=== PATIENT | female | born 1980 | race African-American/Black ===

== ENCOUNTER → 2018-09-26 | Outpatient (CLI) | payer MEDICAID ==
[2018-09-26 12:49] LABS: BASO % 0.7 % (0.0-2.0); EOS # 0.4 (0.0-0.7); GRAN # 2.6 (1.4-6.5); GRAN % 48.7 % (42.2-75.2); LYMPH # 1.9 (1.2-3.4); LYMPH % 34.3 % (20.0-51.0); MEAN CELL VOLUME 87 fl (80.0-100.0); MEAN CORPUSCULAR HEMOGLOBIN 29 pg (27.0-31.0); MEAN CORPUSCULAR HGB CONC 33 g/dl (33.0-37.0); MEAN PLATELET VOLUME 9.9 fl (7.4-10.4); MONO # 0.5 (0.1-0.6); MONO % 9.1 % (1.7-9.3); PLATELET COUNT 314 K/mm3 (130-400); RED BLOOD COUNT 4.48 M/mm3 (4.10-5.30)
[2018-09-26 13:01] LABS: CALCIUM 9.2 mg/dL (8.4-10.2); CHOLESTEROL RISK RATIO 5.1; CREATININE, serum 0.71 (0.52-1.25); POTASSIUM 3.8 mmol/L (3.4-5.0)
[2018-09-26 13:16] LABS: HIV 1/2 Antibodies Non-Reactive; HIV-1p24 Antigen Non-Reactive
[2018-09-26 13:32] LABS: THYROID STIMULATING HORMONE 2.12 uIU/mL (0.465-4.680)
[2018-09-27 01:48] LABS: HEPATITIS B SURFACE ANTIGEN Negative (Negative); HEPATITIS C VIRUS ANTIBODY Negative (Negative)
[2018-09-29 08:22] LABS: HERPES SIMPLEX VIRUS 1 IGG XXX; HERPES SIMPLEX VIRUS 2 IGG XXX; RPR (VDRL) XXX
== END ==
LOC: COL.LAB 11:35
PROVIDERS: Family Medicine
DX: Z11.3 Encounter for screening for infections with a predominantly sexual mode of transmission (principal); I10 Essential (primary) hypertension; N93.9 Abnormal uterine and vaginal bleeding, unspecified; E66.01 Morbid (severe) obesity due to excess calories

== ENCOUNTER 2019-02-04 23:12 | Emergency (ER) | payer MEDICAID ==
[~2019-02-04] VITALS: Ht 170.2 cm; Wt 122.7 kg
[2019-02-05] MEDS ORDERED: NORCO 325 MG-51 TAB PO (00:23)
[2019-02-05 00:40] VITALS: BP 132/80; PULSE 68; TEMP 97.6
== END 2019-02-05 00:45 | disposition home or self-care (01) ==
LOC: COL.ER 23:12
DX: M79.641 Pain in right hand (principal); M79.89 Other specified soft tissue disorders

== ENCOUNTER 2019-03-15 17:53 | Emergency (ER) | payer MEDICAID ==
[~2019-03-15] VITALS: Ht 170.2 cm; Wt 120.5 kg
[~2019-03-15 17:53] MED LIST: NORCO 325 MG-51 TAB PO
[2019-03-15 18:14] VITALS: BP 129/58; TEMP 97.2
[2019-03-15] MEDS ORDERED: 00186-0370-20 IH (18:50)
[2019-03-15] MEDS ORDERED: PROVENTIL0.09 MG/A1 IH (18:50)
[2019-03-15] MEDS ORDERED: FLEXERIL 1010 MG/TAB PO (18:50)
[2019-03-15 20:00] VITALS: PULSE 92
[2019-03-15] MEDS ORDERED: PREDNISONE20 MG PO (20:17)
== END 2019-03-15 20:33 | disposition home or self-care (01) ==
LOC: COL.ER 17:53
DX: J45.901 Unspecified asthma with (acute) exacerbation (principal); F17.210 Nicotine dependence, cigarettes, uncomplicated
CPT/HCPCS: J7512

== ENCOUNTER 2019-07-21 18:21 | Emergency (ER) | payer MEDICAID ==
[~2019-07-21] VITALS: Ht 170.2 cm; Wt 125.0 kg
[~2019-07-21 18:21] MED LIST changes: +00186-0370-20 IH; +FLEXERIL 1010 MG/TAB PO; +PREDNISONE20 MG PO; +PROVENTIL0.09 MG/A1 IH
[2019-07-21 18:29] VITALS: BP 153/97; TEMP 98.4
[2019-07-21] MEDS ORDERED: ZANAFLEX 4MG TAB4 MG PO (20:57)
[2019-07-21 21:07] VITALS: PULSE 79
== END 2019-07-21 21:09 | disposition home or self-care (01) ==
LOC: COL.ER 18:21
DX: M62.838 Other muscle spasm (principal); I10 Essential (primary) hypertension
CPT/HCPCS: J1885

== ENCOUNTER 2019-10-27 05:20 | Day surgery (SDC) | payer MEDICAID ==
[2019-10-27] VITALS (10 sets, daily range): BP systolic 118–140; BP diastolic 68–90; PULSE 57–82; TEMP 97.9–98.3
[~2019-10-27 05:20] MED LIST changes: +CARAFATE 1GM1 G PO; +PROTONIX 40MG T40 MG PO; +ZANAFLEX 4MG TAB4 MG PO; +ZOFRAN ODT4 MG PO
--- NOTE | 2019-10-27 05:35 | NUR ---
Ambulatory to unit for scheduled surgery. oriented to plan of care. OR consent signed, questions invited and answered.
--- NOTE | 2019-10-27 06:35 | NUR ---
husbands phone number: [phone] "Shirley"
[2019-10-27] MEDS ORDERED: IBU600 MG PO (08:40)
[2019-10-27] MEDS ORDERED: PERCOCET 325 MG1 TA2 PO (08:40)
--- NOTE | 2019-10-27 09:30 | NUR ---
0930PATIENT MOVED TO ROOM FROM PACU. VSS. PT IS ON 2L O2 NC STILL. SPO2 98%. FEW EXP WHEEZES AUSCULATED. PT RATES PAIN 5/10 FOR ABDOMINAL CRAMPING. SITES X 2 COVERED WITH BANDAIDS CDI, SITE X 1 COVERED WITH 2X2 AND TEGADRM CDI. PT ALERT AND ORIENTED.
--- NOTE | 2019-10-27 09:45 | NUR ---
0945PT GIVEN WARM BLANKET TO ABDOMEN AND ICE CHIPS. VSS. DENIES NEEDS.
--- NOTE | 2019-10-27 10:00 | NUR ---
1000PT RATING PAIN 5/10 STILL WITH CRAMPING. STATES SHE IS HUNGRY AND THIRSTY. WATER GIVEN. WILL START TO ADV DIET TOLERATED.
--- NOTE | 2019-10-27 10:45 | NUR ---
1045 PT STATES SHE IS STILL NAUSEATED, ZOFRAN ODT GIVEN. PT HAS JUST BEEN WORKING ON ICE CHIPS AND HAD HALF A BRYCE CRACKER WITH HER PERCOCET AT 1015. PT REQUSETED BED PAIN TO VOID IN, VOIDED 300ML. TOLERATED WELL. O2 REMOVED. SPO2 HAS BEEN 97-99% ON 2L NC. WILL CONT TO MONITOR.
--- NOTE | 2019-10-27 11:15 | NUR ---
1115PT STATES SHE IS STILL NAUSEATED. STATES PAIN IS 'OKAY' RATING IT AT A 5/10 SAYING ITS MOSTLY CRAMPING AND THAT HER BIGGEST CONCERN RIGHT NOW IS HER UPSET STOMACH. ENCOURAGED TO REST.
--- NOTE | 2019-10-27 12:15 | NUR ---
1215PT REQUEST HOT BROTH TO HELP SOOTHE STOMACH. 1230 ATTEMPTED TO DRINK BROTH. VOMITED BACK UP. DISCUSSED STICKING WITH ICE CHIPS AND WATER SIPS FOR NOW. 1300 PT STATED SHE THINKS SHE CAN KEEP A MOTRIN DOWN, GIVEN PO AT THIS TIME. STATES SHE IS STILL VERY NAUSEATED AND REQUESTED SOMETHING ELSE FOR NAUSEA. PAIN STILL 5/10 PT STATES IT IS 'TOLERABLE.' DR KIRKLAND NOTIFIED, ORDER FOR PHENERGAN 25MG IV.
--- NOTE | 2019-10-27 19:25 | NUR ---
Patient tolerates dinner without nausea. Pain well controlled. Patient desires to be discharged. Dr. Odell called and discharge orders received.
--- NOTE | 2019-10-27 19:50 | NUR ---
Discharge instructions reviewed. Patient discharged home in stable condition.
== END 2019-10-27 19:50 | disposition home or self-care (01) ==
LOC: SDCO 05:20
DX: N83.12 Corpus luteum cyst of left ovary (principal); N83.02 Follicular cyst of left ovary; E66.9 Obesity, unspecified; I10 Essential (primary) hypertension; F17.210 Nicotine dependence, cigarettes, uncomplicated; K21.9 Gastro-esophageal reflux disease without esophagitis; J45.909 Unspecified asthma, uncomplicated; B00.9 Herpesviral infection, unspecified; D57.3 Sickle-cell trait; Z79.52 Long term (current) use of systemic steroids; Z90.49 Acquired absence of other specified parts of digestive tract; Z90.710 Acquired absence of both cervix and uterus; Z68.42 Body mass index [BMI] 45.0-49.9, adult
CPT/HCPCS: J1170; J1885; J2405; J2550; J2710; J3010; J7120; Q4114

== ENCOUNTER 2020-03-11 09:09 | Emergency (ER) | payer MEDICAID ==
[~2020-03-11] VITALS: Ht 167.6 cm; Wt 143.2 kg
[~2020-03-11 09:09] MED LIST changes: +IBU600 MG PO; +PERCOCET 325 MG1 TA2 PO
[2020-03-11 09:16] VITALS: TEMP 98.1
[2020-03-11] MEDS ORDERED: TYLENOL 325MG325 MG PO (09:37)
[2020-03-11] MEDS ORDERED: DITROPAN 5MG TAB5 MG PO (09:38)
[2020-03-11] MEDS ORDERED: TOPAMAX50 MG (09:38)
[2020-03-11 10:55] LABS: BASO % 0.6 % (0.0-2.0); EOS # 0.1 (0.0-0.7); GRAN # 2.7 (1.4-6.5); GRAN % 58.1 % (42.2-75.2); HEMATOCRIT 40.2 % (37.0-47.0); HEMOGLOBIN 13.7 g/dl (12.5-16.0); LYMPH # 1.3 (1.2-3.4); LYMPH % 28.1 % (20.0-51.0); MEAN CELL VOLUME 87 fl (80.0-100.0); MEAN CORPUSCULAR HEMOGLOBIN 30 pg (27.0-31.0); MEAN CORPUSCULAR HGB CONC 34 g/dl (33.0-37.0); MEAN PLATELET VOLUME 10.3 fl (7.4-10.4); MONO # 0.5 (0.1-0.6); PLATELET COUNT 281 K/mm3 (130-400); RED BLOOD COUNT 4.61 M/mm3 (4.10-5.30); REDCELL DISTRIBUTION WIDTH-CV 13.2 % (11.5-14.5)
[2020-03-11 11:07] LABS: ALBUMIN 3.7 gm/dL (3.5-5.0); BILIRUBIN,TOTAL 0.4 mg/dL (0.0-1.0); CALCIUM 8.6 mg/dL (8.4-10.2); CREATININE, serum 0.91 (0.52-1.25); POTASSIUM 4.1 mmol/L (3.4-5.0); TOTAL PROTEIN 6.9 gm/dL (6.4-8.2)
[2020-03-11 11:34] LABS: COLLECTION METHOD CLEAN CATCH
[2020-03-11 11:43] LABS: MUCOUS Present /lpf; PH 5 (5-8); URINE APPEARANCE Clear; URINE BACTERIA Rare /hpf; URINE BILIRUBIN Negative (NEGATIVE); URINE BLOOD Negative (NEGATIVE); URINE COLOR Yellow; URINE GLUCOSE Negative (NEGATIVE); URINE KETONE Negative (NEGATIVE); URINE LEUKOCYTE ESTERASE Negative (NEGATIVE); URINE NITRATE Negative (NEGATIVE); URINE PROTEIN(semi-quant) Negative (NEGATIVE); URINE RBC 0-2 /hpf; URINE UROBILINOGEN Negative (NEGATIVE)
[2020-03-11] MEDS ORDERED: CLEOCIN HC150 MG/CAP PO (13:04)
[2020-03-11] MEDS ORDERED: NORCO 325 MG-51 TAB PO (13:36)
[2020-03-11 13:56] VITALS: BP 151/93; PULSE 55
== END 2020-03-11 14:05 | disposition home or self-care (01) ==
LOC: COL.ER 09:09
PROVIDERS: Emergency Medicine
DX: L02.214 Cutaneous abscess of groin (principal); E66.01 Morbid (severe) obesity due to excess calories; Z87.891 Personal history of nicotine dependence; Z79.51 Long term (current) use of inhaled steroids
CPT/HCPCS: J2270; J2405; J3010; J7120

== ENCOUNTER → 2020-04-14 | Outpatient (CLI) | payer MEDICAID ==
[~2020-04-14] MED LIST changes: +CLEOCIN HC150 MG/CAP PO; +DITROPAN 5MG TAB5 MG PO; +MEDROL 4MG DOSPA4 MG PO; +NORFLEX 10100 MG/TAB PO; +TOPAMAX50 MG; +TYLENOL 325MG325 MG PO
== END ==
LOC: COL.RAD
DX: G43.009 Migraine without aura, not intractable, without status migrainosus (principal); H74.8X1 Other specified disorders of right middle ear and mastoid

== ENCOUNTER 2020-07-07 13:21 | Emergency (ER) | payer MEDICAID ==
[~2020-07-07] VITALS: Ht 167.6 cm; Wt 122.7 kg
[~2020-07-07 13:21] MED LIST changes: -MEDROL 4MG DOSPA4 MG PO; -NORFLEX 10100 MG/TAB PO
[2020-07-07 13:50] VITALS: TEMP 97.3
[2020-07-07] MEDS ORDERED: NORFLEX 10100 MG/TAB PO (16:05)
[2020-07-07] MEDS ORDERED: MEDROL 4MG DOSPA4 MG PO (16:05)
[2020-07-07 16:11] VITALS: BP 131/80; PULSE 81
== END 2020-07-07 16:11 | disposition home or self-care (01) ==
LOC: COL.ER 13:21
DX: G89.29 Other chronic pain (principal); M54.5 Low back pain; I10 Essential (primary) hypertension; E66.9 Obesity, unspecified; G43.909 Migraine, unspecified, not intractable, without status migrainosus; Z90.710 Acquired absence of both cervix and uterus; Z79.891 Long term (current) use of opiate analgesic; Z68.41 Body mass index [BMI] 40.0-44.9, adult
CPT/HCPCS: J1885; J2360

== ENCOUNTER → 2021-04-06 | Outpatient (RCR) | payer MEDICAID ==
[~2021-04-06] MED LIST changes: +MEDROL 4MG DOSPA4 MG PO; +NORFLEX 10100 MG/TAB PO
== END ==
LOC: WSOT
DX: M25.531 Pain in right wrist (principal); M79.641 Pain in right hand

== ENCOUNTER 2021-10-14 14:48 | Emergency (ER) | payer MEDICAID ==
[~2021-10-14] VITALS: Ht 167.6 cm; Wt 113.6 kg
[2021-10-14 14:58] VITALS: TEMP 98.5
[2021-10-14 16:30] LABS: BASO # 0.1 K/mm3 (0.0-0.2); BASO % 1.1 % (0.0-2.0); EOS # 0.3 K/mm3 (0.0-0.7); EOS % 5.7 % (0.0-4.0); GRAN # 1.8 K/mm3 (1.4-6.5); GRAN % 38.8 % (42.2-75.2); HEMATOCRIT 41.2 % (37.0-47.0); HEMOGLOBIN 14.2 g/dl (12.5-16.0); LYMPH # 2.2 K/mm3 (1.2-3.4); LYMPH % 46.4 % (20.0-51.0); MEAN CELL VOLUME 88 fl (80.0-100.0); MEAN CORPUSCULAR HEMOGLOBIN 30 pg (27-31); MEAN CORPUSCULAR HGB CONC 35 g/dl (33.0-37.0); MEAN PLATELET VOLUME 10.2 fl (7.4-10.4); MONO # 0.4 K/mm3 (0.1-0.6); MONO % 7.8 % (1.7-9.3); PLATELET COUNT 299 K/mm3 (130-400); RED BLOOD COUNT 4.68 M/mm3 (4.10-5.30); REDCELL DISTRIBUTION WIDTH-CV 12.1 % (11.5-14.5)
[2021-10-14 16:37] VITALS: BP 155/97
[2021-10-14 16:47] LABS: CREATININE, serum 0.85 mg/dL (0.57-1.11); POTASSIUM 3.6 mmol/L (3.5-4.5)
[2021-10-14 16:48] LABS: ALBUMIN 3.6 gm/dL (3.5-5.0); BILIRUBIN,TOTAL 0.4 mg/dL (0.2-1.2); CALCIUM 9.2 mg/dL (8.4-10.2); TOTAL PROTEIN 6.8 gm/dL (6.2-8.1)
[2021-10-14] MEDS ORDERED: PREDNISONE20 MG PO (16:57)
[2021-10-14 17:13] VITALS: PULSE 60
== END 2021-10-14 17:13 | disposition home or self-care (01) ==
LOC: COL.ER 14:48
PROVIDERS: Physician Assistant
DX: J45.901 Unspecified asthma with (acute) exacerbation (principal); F17.290 Nicotine dependence, other tobacco product, uncomplicated
CPT/HCPCS: J7512

== ENCOUNTER 2021-10-16 20:24 | Emergency (ER) | payer MEDICAID ==
[~2021-10-16] VITALS: Ht 167.6 cm; Wt 113.6 kg
[2021-10-16 20:29] VITALS: BP 150/90; TEMP 98.4
[2021-10-16] MEDS ORDERED: NEB MC (21:08)
[2021-10-16] MEDS ORDERED: ALBUTEROL0.83 MG/ML IH (21:08)
[2021-10-16 21:36] VITALS: PULSE 58
== END 2021-10-16 21:37 | disposition home or self-care (01) ==
LOC: COL.ER 20:24
DX: J45.901 Unspecified asthma with (acute) exacerbation (principal)

== ENCOUNTER 2021-10-28 16:56 | Emergency (ER) | payer MEDICAID ==
[~2021-10-28] VITALS: Ht 167.6 cm; Wt 117.3 kg
[~2021-10-28 16:56] MED LIST changes: +ALBUTEROL0.83 MG/ML IH; +NEB MC
[2021-10-28 17:20] VITALS: BP 146/88; TEMP 98.1
[2021-10-28] MEDS ORDERED: ALAWAY 10 ML10 ML OP (17:55)
[2021-10-28 18:14] VITALS: PULSE 54
== END 2021-10-28 18:14 | disposition home or self-care (01) ==
LOC: COL.ER 16:56
DX: H10.13 Acute atopic conjunctivitis, bilateral (principal); J45.901 Unspecified asthma with (acute) exacerbation; Z87.891 Personal history of nicotine dependence; Z79.52 Long term (current) use of systemic steroids

== ENCOUNTER → 2023-10-07 | Outpatient (CLI) | payer MEDICAID ==
[~2023-10-07] MED LIST changes: +ADIPEX-P37.5 M2 PO; +ALAWAY 10 ML10 ML OP; +AMOXICILLIN 8751 TAB PO; +GLUCOPHAGE500 MG/TAB PO; +IBU800 M1 PO; +MOTRIN 200200 MG/TAB PO; +NORCO 325 MG-7.1 TAB PO; +REGLAN 10MG10 MG/TAB PO; +SINGULAIR 110 MG/TAB PO; -TOPAMAX50 MG; +TOPAMAX50 MG PO
[2023-10-07 10:43] LABS: BASO # 0.1 K/mm3 (0.0-0.2); BASO % 1.1 % (0.0-2.0); EOS # 0.1 K/mm3 (0.0-0.7); EOS % 2.2 % (0.0-4.0); GRAN # 2.6 K/mm3 (1.4-6.5); GRAN % 57.4 % (42.2-75.2); HEMOGLOBIN 15.8 g/dl (12.5-16.0); LYMPH # 1.4 K/mm3 (1.2-3.4); LYMPH % 30.2 % (20.0-51.0); MEAN CELL VOLUME 97 fl (80.0-100.0); MEAN CORPUSCULAR HEMOGLOBIN 31 pg (27-31); MEAN CORPUSCULAR HGB CONC 32 g/dl (33.0-37.0); MEAN PLATELET VOLUME 9.7 fl (7.4-10.4); MONO # 0.4 K/mm3 (0.1-0.6); MONO % 8.9 % (1.7-9.3); PLATELET COUNT 251 K/mm3 (130-400); RED BLOOD COUNT 5.04 M/mm3 (4.10-5.30); REDCELL DISTRIBUTION WIDTH-CV 12.2 % (11.5-14.5)
== END ==
LOC: COL.LAB 09:40
PROVIDERS: Orthopaedic Surgery Sports Medicine
DX: M25.561 Pain in right knee (principal); Z96.651 Presence of right artificial knee joint

== ENCOUNTER 2023-10-18 17:37 | Observation (INO) | payer MEDICAID ==
[~2023-10-18] VITALS: Ht 170.2 cm; Wt 115.0 kg
[~2023-10-18 17:37] MED LIST changes: -ADIPEX-P37.5 M2 PO; -GLUCOPHAGE500 MG/TAB PO; -IBU800 M1 PO; -REGLAN 10MG10 MG/TAB PO; -SINGULAIR 110 MG/TAB PO
[2023-10-18] MEDS ORDERED: Ketorolac 30 MG/ML VIAL IV ONE (18:00)
[2023-10-18] MEDS ORDERED: NS 1,000 ML IV ONE (18:00)
[2023-10-18] MEDS ORDERED: Ondansetron 4 MG/2 ML VIAL IV ONE (18:00)
[2023-10-18 18:09] LABS: BASO % 0.3 % (0.0-2.0); EOS % 0.1 % (0.0-4.0); GRAN # 13.1 K/mm3 (1.4-6.5); GRAN % 86.9 % (42.2-75.2); HEMOGLOBIN 14.5 g/dl (12.5-16.0); LYMPH % 6.5 % (20.0-51.0); MEAN CELL VOLUME 90 fl (80.0-100.0); MEAN CORPUSCULAR HEMOGLOBIN 31 pg (27-31); MEAN CORPUSCULAR HGB CONC 35 g/dl (33.0-37.0); MEAN PLATELET VOLUME 10.3 fl (7.4-10.4); MONO # 0.9 K/mm3 (0.1-0.6); MONO % 5.7 % (1.7-9.3); PLATELET COUNT 271 K/mm3 (130-400); RED BLOOD COUNT 4.65 M/mm3 (4.10-5.30)
[2023-10-18 18:25] LABS: ALBUMIN 3.4 g/dL (3.5-5.0); BILIRUBIN,TOTAL 0.7 mg/dL (0.2-1.2); CALCIUM 8.9 mg/dL (8.4-10.2); CREATININE, serum 0.68 mg/dL (0.57-1.11); TOTAL PROTEIN 6.9 g/dl (6.2-8.1)
[2023-10-18] MEDS ORDERED: Morphine 4 MG/ML VIAL IV ONE (18:45)
[2023-10-18] MEDS ORDERED: Iohexol 300 - 100 ML VIAL IV ONE (19:22)
[2023-10-18 19:27] LABS: COLLECTION METHOD CLEAN CATCH
[2023-10-18 19:36] LABS: PH 7.5 (5.0-8.5); URINE APPEARANCE CLEAR (CLEAR/HAZY); URINE BLOOD NEGATIVE (NEGATIVE); URINE COLOR YELLOW (YELLOW); URINE GLUCOSE NEGATIVE (NEGATIVE); URINE KETONE NEGATIVE (NEGATIVE); URINE NITRATE NEGATIVE (NEGATIVE); URINE PROTEIN(semi-quant) TRACE (NEGATIVE)
[2023-10-18] MEDS ORDERED: HYDROmorphone 0.5 MG/0.5 ML SYRINGE IV ONE (20:00)
[2023-10-18] MEDS ORDERED: Rocuronium 50 MG/5 ML Multi-Dose VIAL ONE (20:37)
[2023-10-18] MEDS ORDERED: Succinylcholine PF 200 MG/10 ML SYRINGE IV ONE (20:37)
[2023-10-18] MEDS ORDERED: fentaNYL 50 MCG/ML 2 ML VIAL ONE ×2 (20:37→22:00)
[2023-10-18] MEDS ORDERED: Lidocaine PF 2% (20 MG/ML) 5 ML VIAL ONE (20:37)
[2023-10-18] MEDS ORDERED: LR 1,000 ML IV SCH (20:45)
[2023-10-18] MEDS ORDERED: Ondansetron 4 MG/2 ML VIAL ONE (21:18)
[2023-10-18] MEDS ORDERED: dexAMETHasone 10 MG/ML VIAL ONE (21:18)
[2023-10-18] MEDS ORDERED: Ondansetron 4 MG/2 ML VIAL IV PRN ×2 (21:30→22:15)
[2023-10-18] MEDS ORDERED: fentaNYL 50 MCG/ML 1 ML SYRINGE/VIAL [PACU/SDC ONLY] IV PRN (21:30)
[2023-10-18] MEDS ORDERED: HYDROmorphone 1 MG/1 ML SYRINGE [PACU/SDC ONLY] IV PRN (21:30)
[2023-10-18] MEDS ORDERED: hydrALAZINE 20 MG/ML 1 ML VIAL IV PRN (21:30)
[2023-10-18] MEDS ORDERED: Meperidine 50 MG/ML 1 ML VIAL IV PRN (21:30)
[2023-10-18] MEDS ORDERED: Naloxone 0.4 MG/ML VIAL IV PRN (22:15)
[2023-10-18] MEDS ORDERED: HYDROmorphone 0.5 MG/0.5 ML SYRINGE IV PRN (22:15)
[2023-10-18] MEDS ORDERED: Acetaminophen 500 MG TAB PO PRN (22:15)
[2023-10-18 23:00] VITALS: BP 131/88; PULSE 60; TEMP 97.5
[2023-10-18 23:15] VITALS: BP 150/83; PULSE 71
--- NOTE | 2023-10-18 23:18 | NUR ---
THE PATIENT ARRIVED VIA BED FROM THE PACU. THE PATIENT WAS ALERT AND ORIENTED AND APPROPRIATE. VITAL SIGNS STABLE. THE PATIENT WAS ORIENTED TO THE ROOM AND BED CONTROLS. CALL LIGHT AND PERSONAL BELONGINGS WITHIN REACH.
[2023-10-18 23:30] VITALS: BP 152/94; PULSE 71
[2023-10-18] MEDS ORDERED: IBU800 M1 PO (23:33)
[2023-10-18] MEDS ORDERED: REGLAN 10MG10 MG/TAB PO (23:39)
[2023-10-18] MEDS ORDERED: GLUCOPHAGE500 MG/TAB PO (23:44)
[2023-10-18 23:45] VITALS: BP 148/85; PULSE 65
[2023-10-18] MEDS ORDERED: ADIPEX-P37.5 M2 PO (23:45)
[2023-10-18] MEDS ORDERED: SINGULAIR 110 MG/TAB PO (23:48)
[2023-10-19] VITALS (9 sets, daily range): BP systolic 129–145; BP diastolic 71–89; PULSE 53–90; TEMP 98.3–98.4
--- NOTE | 2023-10-19 00:30 | NUR ---
Received report from DARSHANA Garcia, patient in bed, on post op vitals, VSS, with IV infusing well on left AC, looks comfortable at this time, tolerated the 2 jellos and wanted to try eating sandwich, sandwich given, will continue to monitor.
[2023-10-19] MEDS ORDERED: Ibuprofen 600 MG TAB PO SCH (02:06)
--- NOTE | 2023-10-19 02:36 | NUR ---
Called Dr. Silverman and made him aware that patient's IV was leaking, tolerating fluids fine and ate jello and sandwich, and he's okay to leave the IV out at this time, no new orders received at this time.
--- NOTE | 2023-10-19 04:31 | NUR ---
Patient reports pain to abdomen, PS of 9/10, medicated with [place], will continue to monitor.
[2023-10-19] MEDS ORDERED: NORCO 325 MG-51 TAB PO (07:16)
--- NOTE | 2023-10-19 09:25 | NUR ---
PATIENT ALERT AND ORIENTED X4. VSS. PATIENT HERE FOR LAP APPY. LAPS X3 CDI WITH BANDAIDS. NO IV. PATIENT REPORTS PAIN 9/10, REQUESTS PAIN MEDICATION. PATIENT REFUSED SCHEDULED IBUPROFEN. PATIENT ON RA, TOLERATING PO. NO FURTHER NEEDS. CALL LIGHT IN REACH.
--- NOTE | 2023-10-19 09:27 | NUR ---
DISCHARGE INSTRUCTIONS PRIVIDED. PATIENT EDUCATION GIVEN. NO IV TO DC. FOLLOW UP APPOINTMENT DISCUSSED. MEDICATIONS REVIEWED. PATIENT DENIES ANY QUESTIONS OR CONCERNS.
--- NOTE | 2023-10-19 09:37 | NUR ---
Initial visit; Patient thanked [employer] M[employer] Observer for looking in on her and offering God's blessings. Patient was using telephone, which [employer] M[employer] Observer didn't detect at first. Later she noticed and let patient go. [employer] M[employer] Observer is available if patient would like to see her later.
--- NOTE | 2023-10-19 09:44 | NUR ---
PATIENT ESCORTED OUT VIA WHEELCHAIR
== END 2023-10-19 09:45 | disposition home or self-care (01) ==
LOC: COL.ER 17:37 → SURG 19:48
PROVIDERS: Nurse Practitioner Primary Care; ADMIT Surgery
DX: K35.80 Unspecified acute appendicitis (principal); K35.891 Other acute appendicitis without perforation, with gangrene; E66.9 Obesity, unspecified; Z87.891 Personal history of nicotine dependence
CPT/HCPCS: G0378; J1100; J1170; J1885; J2270; J2405; J2543; J2704; J3010; J7030; Q9967